=== PATIENT | female | born 1990 | race Caucasian/White ===

== ENCOUNTER → 2016-09-25 | Day surgery (SDC) | payer OTHER ==
[~2016-09-25] MED LIST: HYDROmorphone 2 MG/ML VIAL IV PRN; IV RINGERS,LACTATED 1000ML 1,000 ML IV SCH; LIDOCAINE 1% 1 ML SYRINGE. ID PRN; LIDOCAINE 2% PF Vial for OR 5 ML VIAL. ONE; MIDAZOLAM HCL/PF 2 MG/2 ML VIAL. IV PRN; MORPHINE SULFATE 2 MG/ML DISP.SYRIN. IV PRN; ONDANSETRON PF 4 MG/2 ML VIAL. IV PRN; PROCHLORPERAZINE 10 MG/2 ML VIAL. IV PRN; PROPOFOL 20 ML IV ONE; birth control; fentaNYL PF VIAL 100 MCG/2 ML VIAL IV PRN
[2016-09-25 07:41] LABS: NEG OBC UR NEG; POS OBC UR POS
[2016-09-25 08:50] VITALS: BP 93/52
--- NOTE | 2016-09-26 15:01 | PATHOLOGY ---
PATHOLOGY REPORT * * * * * * * * FINAL DIAGNOSIS: A. Duodenal biopsies: - Normal villous architecture with increased intraepithelial lymphocytes. See comment. B. Esophageal biopsies: - Segments of mildly hyperplastic squamous esophageal mucosa. (JPM:flakita; 09/26/2016) COMMENT: A. Sections of the duodenal biopsies reveal segments of duodenal and small intestine mucosa showing a normal villous architecture with focally increased intraepithelial lymphocytes. The differential diagnosis includes a wide range of possibilities, including celiac disease, bacterial overgrowth, nonsteroidal antiinflammatory drug damage, reaction to Helicobacter pylori infection, tropical sprue, and chronic inflammatory bowel disease. Correlate clinically. B. Sections of the esophageal biopsies reveal segments of tangentially oriented mildly hyperplastic squamous esophageal mucosa. There is no evidence of Farah's change, dysplasia, or malignancy. (JPM:flakita; 09/26/2016) REPORT ELECTRONICALLY SIGNED BY: Daren Joe M.D. DATE/TIME: 09/26/2016 15:01 * * * * * * * * GROSS PATHOLOGY: A. Received in formalin labeled "Kenneth Blanchard, duodenal biopsies, r/o sprue," are multiple segments of gu soft tissue measuring from 0.1 up to 0.3 cm in maximum dimension. The specimen is submitted entirely in cassette A1. B. Received in formalin labeled "esophageal biopsies," are multiple segments of gu soft tissue measuring from 0.1 up to 0.3 cm in maximum dimension. The specimen is submitted entirely in cassette B1. (JPM; 09/25/16) INITIAL CPT CODE(S): A; 68693 B; 03734 Professional services [place] [address] Technical services performed by [facility] at [address] [place] [address], [facility] [address], [place] [address]. SPECIMEN(S) RECEIVED: A.Duodenal biopsy, r/o sprue B.Esopahgeal biopsy, r/o eosinophilic esophagitis CLINICAL HISTORY: Weight loss PATIENT: KENNETH BLANCHARD /AGE: 810/11/1990 (Age: 25) PATIENT #: [id number] ALT CASE #: SPECIMEN COLLECTION DATE: 09/25/2016 SPECIMEN RECEIVED DATE: 09/25/2016 [facility] - [address] [place] [address] - PHONE: [phone] * * * END OF REPORT * * *
== END | disposition home or self-care (01) ==
LOC: SURG 07:11
PROVIDERS: ATTEND Internal Medicine Gastroenterology
DX: K21.0 Gastro-esophageal reflux disease with esophagitis (principal); K31.89 Other diseases of stomach and duodenum; F41.9 Anxiety disorder, unspecified; D64.9 Anemia, unspecified; Z87.39 Personal history of other diseases of the musculoskeletal system and connective tissue; Z98.891 History of uterine scar from previous surgery; Z72.0 Tobacco use; Z88.0 Allergy status to penicillin; Z91.040 Latex allergy status
CPT/HCPCS: 43239; 81025; J2001; J2704

== ENCOUNTER → 2016-09-30 | Outpatient (CLI) | payer OTHER ==
[2016-09-25 08:50] VITALS: BP 93/52
[~2016-09-30] VITALS: Ht 152.4 cm; Wt 58.1 kg
[~2016-09-30] MED LIST changes: -HYDROmorphone 2 MG/ML VIAL IV PRN; -IV RINGERS,LACTATED 1000ML 1,000 ML IV SCH; -LIDOCAINE 1% 1 ML SYRINGE. ID PRN; -LIDOCAINE 2% PF Vial for OR 5 ML VIAL. ONE; -MIDAZOLAM HCL/PF 2 MG/2 ML VIAL. IV PRN; -MORPHINE SULFATE 2 MG/ML DISP.SYRIN. IV PRN; +NORMAL SALINE IV ONE; -ONDANSETRON PF 4 MG/2 ML VIAL. IV PRN; -PROCHLORPERAZINE 10 MG/2 ML VIAL. IV PRN; -PROPOFOL 20 ML IV ONE; +SINCALIDE IV ONE; -fentaNYL PF VIAL 100 MCG/2 ML VIAL IV PRN
--- NOTE | 2016-09-30 12:31 | RAD ---
Hepatobiliary scan 09/30/2016 Indication: Upper abdominal pain x1 year Comparison study: None Discussion: Imaging over the abdomen was performed following the administration of 5.5 mCi of technetium 99m Choletec. Following filling of the gallbladder, 1.16 mcg of CCK was administered imaging of the abdomen continued. Gallbladder ejection fraction was measured. There is normal clearance of radiotracer by the liver. The gallbladder fills an expected fashion. Emptying of radiotracer small bowel is noted. Following the administration of CCK gallbladder ejection fraction measures 66.1% which is within normal limits. Following the administration of CCK possible duodenogastric reflux of radiotracer is noted. Impression: 1. No evidence of acute cholecystitis 2. Gallbladder ejection fraction is within normal limits. 3. Possible reflux of radiotracer from the duodenum into the distal stomach. Finding is of uncertain clinical significance.
== END | disposition home or self-care (01) ==
LOC: NM 09-25 05:55
PROVIDERS: ATTEND Internal Medicine Gastroenterology
DX: R10.9 Unspecified abdominal pain (principal)
CPT/HCPCS: 78226; 88305; 96374; 96375; A9537; J2805

== ENCOUNTER → 2016-10-22 | Outpatient (CLI) | payer OTHER ==
[2016-09-25 08:50] VITALS: BP 93/52
[~2016-10-22] MED LIST changes: -NORMAL SALINE IV ONE; -SINCALIDE IV ONE
--- NOTE | 2016-10-22 11:25 | RAD ---
Radionuclide gastric imaging study, 10/22/2016: History: Abdominal pain The study was performed utilizing a solid test meal radiolabeled with 2 mCi of technetium 99m sulfur colloid. Imaging obtained out to one hour showed very little gastric emptying. The time activity curve is relatively flat. A T1/2 of 250 minutes was calculated. IMPRESSION: Markedly delayed gastric emptying.
== END | disposition home or self-care (01) ==
LOC: NM 08:03
PROVIDERS: ATTEND Internal Medicine Gastroenterology
DX: K30 Functional dyspepsia (principal)
CPT/HCPCS: 78264; A9541